=== PATIENT | female | born 1970 | race Caucasian/White ===

== ENCOUNTER 2020-01-23 19:51 | Emergency (ER) | payer OTHER ==
[2020-01-23] MEDS ORDERED: ondansetron/PF 4mg/2ml inj IV ONE (19:55)
[2020-01-23] MEDS ORDERED: normal saline 1000ML IV soln IVB ONE (19:55)
[2020-01-23] MEDS ORDERED: morphine 4 MG/ML inj SYRINge IV PRN (19:55)
[2020-01-23] MEDS ORDERED: ketorolac trometh. 30mg/ml inj. IV ONE (19:55)
[2020-01-23] MEDS ORDERED: LIDOcaine 2% 10ml TOPICAL JELLY (Urojet) MM ONE (20:05)
--- NOTE | 2020-01-23 20:05 | NUR ---
due to pt severe pain, received verbal order from edmd nelson for urojet for grande placement.
[2020-01-23] MEDS ORDERED: opium/belladonna alkaloids No. 15A 30mg rectal suppository RC ONE (20:15)
[2020-01-23 20:19] LABS: BASOPHILS # (AUTO) 0.1 X10'3 (0-0.2); BASOPHILS % (AUTO) 0.9 % (0-1); EOSINOPHILS # (AUTO) 0.2 X10'3 (0-0.9); MONOCYTES # (AUTO) 0.7 X10'3 (0-0.9); NEUTROPHILS # (AUTO) 1.5 X10'3 (1.8-7.7)
[2020-01-23 20:22] LABS: EOSINOPHILS % (AUTO) 3.2 % (0-6); HEMATOCRIT 41.4 % (35.0-45.0); LYMPHOCYTES # (AUTO) 4.4 X10'3 (1.1-4.8); LYMPHOCYTES % (AUTO) 64.6 % (21-51); MEAN CORPUSCULAR HEMOGLOBIN 32.2 PG (27.0-31.0); MEAN CORPUSCULAR HGB CONC 33.9 g/dL (33.0-36.5); MEAN CORPUSCULAR VOLUME 95.1 FL (78-98); MEAN PLATELET VOLUME 7.7 FL (7.4-10.4); MONOCYTES % (AUTO) 9.8 % (2-12); NEUTROPHILS % (AUTO) 21.5 % (42-75); PLATELET COUNT 225 X10'3 (140-440); RED BLOOD COUNT 4.35 X10'6 (4.20-5.60); RED CELL DISTRIBUTION WIDTH 13.7 % (11.5-14.5); WHITE BLOOD COUNT 6.9 X10'3 (4.5-11.0)
[2020-01-23 20:26] LABS: ALANINE AMINOTRANSFERASE 46 U/L (12-78); ALBUMIN 3.3 G/DL (3.4-5.0); ALBUMIN/GLOBULIN RATIO 0.9 (1.1-1.5); ALKALINE PHOSPHATASE 66 IU/L (46-116); ANION GAP 11 (8-16); ASPARTATE AMINO TRANSFERASE 34 U/L (10-37); BILIRUBIN,TOTAL 0.2 MG/DL (0.1-1.0); BLOOD UREA NITROGEN 11 MG/DL (7-18); BUN/CREATININE RATIO 16.7 (6.6-38.0); CALCIUM 7.9 MG/DL (8.5-10.1); CHLORIDE 108 MMOL/L (99-107); CREATININE 0.66 MG/DL (0.40-0.90); GLUCOSE 134 MG/DL (70-104); LIPASE 354 U/L (73-393); POTASSIUM 3.5 MMOL/L (3.5-5.1); SODIUM 143 MMOL/L (135-145); TOTAL PROTEIN 7.1 G/DL (6.4-8.2); eGFR > 90 ML/MIN
[2020-01-23] MEDS ORDERED: LORazepam 2 mg/ml vial IV ONE (20:35)
[2020-01-23 20:47] LABS: ETHANOL 0.424 GM/DL (0.0-0.010)
[2020-01-23 20:56] LABS: CLARITY,URINE CLEAR (Clear); COLOR,URINE STRAW (Yellow); GLUCOSE, URINE NEGATIVE (Neg); KETONES,URINE NEGATIVE (Neg); LEUKOCYTE ESTERASE ,URINE NEGATIVE (Neg); NITRITES, URINE NEGATIVE (Neg); OCCULT BLOOD,URINE TRACE-INTACT (Neg); PH,URINE 6.5 (4.8-8.0); PROTEIN,URINE NEGATIVE (Neg); UROBILINOGEN,URINE 0.2 E.U/dL (0.2-1.0)
[2020-01-23 20:58] LABS: UA COLLECTION TYPE FOLEY CATH
[2020-01-23 21:21] LABS: BACTERIA,URINE NONE SEEN /HPF (Neg); MUCUS STRANDS NONE SEEN /LPF (Neg); RBC,URINE 0-2 /HPF (0-2); SQUAMOUS EPITHELIAL CELL,UR FEW /LPF (FEW); WBC,URINE NONE SEEN /HPF (0-4)
--- NOTE | 2020-01-23 21:42 | NUR ---
ELI CATH IN PLACE. PT GOING HOME WITH FC AND LEG BAG. PT INSTRUCTED TO SEE PCP SATURDAY REGARDING URINE RETENTION. WILL REVIEW THIS WITH PT'S SINCE PT IS INTOXICATED.
--- NOTE | 2020-01-23 21:44 | NUR ---
spoke to pt's and reviewed d/c orders and FC placement. he verbalized understanding of d/c orders. 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
[2020-01-23 21:51] VITALS: BP 157/118
[2020-01-24 05:41] LABS: URINE AMPHETAMINE SCREEN NEGATIVE (Neg); URINE BARBITUATE SCREEN NEGATIVE (Neg); URINE BENZODIAZEPINES SCREEN NEGATIVE (Neg); URINE CANNABINOID SCREEN NEGATIVE (Neg); URINE COCAINE SCREEN NEGATIVE (Neg); URINE METHADONE SCREEN NEGATIVE (Neg); URINE OPIATE SCREEN NEGATIVE (Neg); URINE PHENCYCLIDINE SCREEN NEGATIVE (Neg)
== END 2020-01-23 22:29 | disposition home or self-care (01) ==
LOC: ER 19:53
DX: R33.9 Retention of urine, unspecified (principal); F10.129 Alcohol abuse with intoxication, unspecified; Z87.891 Personal history of nicotine dependence; Y90.0 Blood alcohol level of less than 20 mg/100 ml
CPT/HCPCS: 36415; 51702; 74176; 80053; 80305; 80320; 81001; 83690; 85025; 96361; 96374; 96375; 99284; J1885; J2060; J2270; J2405; J7030